=== PATIENT | male | born 1940 | race African-American/Black ===

== ENCOUNTER 2019-12-01 16:25 | Emergency (ER) | payer MEDICARE, MEDICAID ==
[~2019-12-01] VITALS: Ht 175.3 cm; Wt 68.0 kg
--- NOTE | 2019-12-01 16:35 | Emergency Room Report ---
History of Present Illness General Chief Complaint: Multiple Trauma/Fall Source: Patient Present Illness HPI Patient is a 79-year-old male who presents after unwitnessed fall at his facility. [facility] in [facility]. He had fallen and hit his head. He reports having pain to his head as well as to his low back into his left hip. Injury occurred approximately 1-2 hours prior to arrival. Patient is not currently taking any blood thinners. He has prior history of dementia. Followed by Dr. Emil Loza. COVID-19 risk:Contact w/high r: No COVID-19 risk:Travel to affect: No Has patient experienced hoover: No Allergies: Coded Allergies: No Known Allergies (Unverified , 12/01/19) Patient History Past Medical History: see triage record Reviewed Nursing Documentation: PMH: Agreed; PSxH: Agreed Nursing Documentation-PMH Hx Hypertension: Yes Review of Systems All Other Systems: negative except mentioned in HPI Physical Exam Vital Signs Date Time Temp Pulse Resp B/P (MAP) Pulse Ox O2 Delivery O2 Flow Rate FiO2 12/01/19 16:21 97.5 82 18 127/84 (98) 96 Room Air Sp02 EP Interpretation: reviewed, normal General Appearance: normal inspection, well appearing, no apparent distress, alert, GCS 15 Head: atraumatic ENT: normal ENT inspection, hearing grossly normal, normal voice Neck: normal inspection, full range of motion, supple, no bony tend Respiratory: normal inspection, lungs clear, normal breath sounds, no respiratory distress, no retraction, no wheezing Cardiovascular #1: regular rate, rhythm, no edema Gastrointestinal: normal inspection, normal bowel sounds, non tender, soft, no guarding, no hernia Genitourinary: no CVA tenderness Musculoskeletal: normal inspection, back normal, normal range of motion Neurologic: alert, motor strength/tone normal, 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, responsive, speech normal, normal inspection Psychiatric: normal inspection, judgement/insight normal, mood/affect normal Skin: laceration - 3cm stellate to forehead Procedures Laceration/Wound Repair Laceration/Wound Repair : Consent: Emergent Wound Location: face Wound's Depth, Shape: into muscle, stellate Wound Length (cm): 3 Wound Explored: clean Irrigated w/ Saline (ccs): 30 Anesthesia: Lidocaine w/ Epi Volume Anesthetic (ccs): 4 Wound Debrided: None Wound Repaired With: sutures Suture Size/Type: 5:0, other - gut Number of Sutures: 8 Deep Layer Suture Size/Type: 5:0, other - vicryl Patient Tolerated: Well Complications: None Medical Decision Making Diagnostic Impression: Primary Impression: Fall Additional Impressions: Facial laceration Contusion, hip ER Course Patient presented after a fall. Differential diagnosis include was not limited to head injury, fracture, lumbar fracture among others. Because of complexity of patient's case laboratory tests and imaging studies were ordered.CT of the head read by radiology showed no evidence of acute intracranial hemorrhage or fracture. CT of the lumbar spine showed no evidence of acute fracture. CT pelvis showed degenerative changes without evident fracture. Patient's laboratory testing was unremarkable. Laceration was irrigated and repaired. Patient tolerated this well.Patient was awake alert and oriented. Patient will discharge back to his facility after discussion with Dr. Emil Loza. Labs Test 12/01/19 16:30 White Blood Count 4.2 K/UL (4.8-10.8) Red Blood Count 4.29 M/UL (4.70-6.10) Hemoglobin 10.9 G/DL (14.2-18.0) Hematocrit 34.5 % (42.0-52.0) Mean Corpuscular Volume 80 FL (80-99) Mean Corpuscular Hemoglobin 25.5 PG (27.0-31.0) Mean Corpuscular Hemoglobin Concent 31.7 G/DL (32.0-36.0) Red Cell Distribution Width 13.6 % (11.6-14.8) Platelet Count 177 K/UL (150-450) Mean Platelet Volume 8.3 FL (6.5-10.1) Neutrophils (%) (Auto) 55.9 % (45.0-75.0) Lymphocytes (%) (Auto) 30.7 % (20.0-45.0) Monocytes (%) (Auto) 11.8 % (1.0-10.0) Eosinophils (%) (Auto) 0.7 % (0.0-3.0) Basophils (%) (Auto) 0.9 % (0.0-2.0) Urine Color Yellow Urine Appearance Clear Urine pH 6 (4.5-8.0) Urine Specific Reserve 1.020 (1.005-1.035) Urine Protein Negative (NEGATIVE) Urine Glucose (UA) Negative (NEGATIVE) Urine Ketones 1+ (NEGATIVE) Urine Blood Negative (NEGATIVE) Urine Nitrite Negative (NEGATIVE) Urine Bilirubin Negative (NEGATIVE) Urine Urobilinogen 4 MG/DL (0.0-1.0) Urine Leukocyte Esterase Negative (NEGATIVE) Sodium Level 148 MMOL/L (136-145) Potassium Level 4.3 MMOL/L (3.5-5.1) Chloride Level 110 MMOL/L (98-107) Carbon Dioxide Level 30 MMOL/L (21-32) Anion Gap 8 mmol/L (5-15) Blood Urea Nitrogen 20 mg/dL (7-18) Creatinine 1.0 MG/DL (0.55-1.30) Estimat Glomerular Filtration Rate > 60 mL/min (>60) Glucose Level 119 MG/DL (74-106) Calcium Level 9.7 MG/DL (8.5-10.1) Total Bilirubin 0.9 MG/DL (0.2-1.0) Aspartate Amino Transf (AST/SGOT) 20 U/L (15-37) Alanine Aminotransferase (ALT/SGPT) 20 U/L (12-78) Alkaline Phosphatase 83 U/L (46-116) Total Protein 7.0 G/DL (6.4-8.2) Albumin 3.8 G/DL (3.4-5.0) Globulin 3.2 g/dL Albumin/Globulin Ratio 1.2 (1.0-2.7) Last Vital Signs Date Time Temp Pulse Resp B/P (MAP) Pulse Ox O2 Delivery O2 Flow Rate FiO2 12/01/19 16:21 97.5 82 18 127/84 (98) 96 Room Air Status: improved Disposition: XFER SN[facility] Condition: Stable Daniel Calvert MD Dec 01, 2019 16:35
[2019-12-01] MEDS ORDERED: Lidocaine 1% 10mg/ml/Epi 0.005mg/ml 30ml vial INJ ONE (16:37)
[2019-12-01 16:41] VITALS: BP 135/45
[2019-12-01] MEDS ORDERED: Lidocaine 1% 10mg/ml/EPI 0.01mg/ml 30ml INJ ONE (16:45)
[2019-12-01 17:05] LABS: BASOPHILS % (AUTO) 0.9 % (0.0-2.0); EOSINOPHILS % (AUTO) 0.7 % (0.0-3.0); HEMATOCRIT 34.5 % (42.0-52.0); HEMOGLOBIN 10.9 G/DL (14.2-18.0); LYMPHOCYTES % (AUTO) 30.7 % (20.0-45.0); MEAN CORPUSCULAR VOLUME 80 FL (80-99); MONOCYTES % (AUTO) 11.8 % (1.0-10.0); NEUTROPHILS % (AUTO) 55.9 % (45.0-75.0); PLATELET COUNT 177 K/UL (150-450); RED BLOOD COUNT 4.29 M/UL (4.70-6.10); RED CELL DISTRIBUTION WIDTH 13.6 % (11.6-14.8); WHITE BLOOD COUNT 4.2 K/UL (4.8-10.8)
[2019-12-01 17:07] LABS: APPEARANCE,URINE CLEAR; BILIRUBIN, URINE NEGATIVE (NEGATIVE); GLUCOSE, URINE (UA) NEGATIVE (NEGATIVE); KETONES,URINE 1+ (NEGATIVE); LEUKOCYTE ESTERASE ,URINE NEGATIVE (NEGATIVE); NITRITE,URINE NEGATIVE (NEGATIVE); PH,URINE 6 (4.5-8.0); PROTEIN,URINE NEGATIVE (NEGATIVE); UROBILINOGEN,URINE 4 MG/DL (0.0-1.0)
[2019-12-01 17:11] LABS: COLOR,URINE YELLOW
[2019-12-01 17:14] LABS: ANION GAP 8 mmol/L (5-15); BLOOD UREA NITROGEN 20 mg/dL (7-18); CALCIUM 9.7 MG/DL (8.5-10.1); CARBON DIOXIDE 30 MMOL/L (21-32); CHLORIDE 110 MMOL/L (98-107); POTASSIUM 4.3 MMOL/L (3.5-5.1); SODIUM 148 MMOL/L (136-145)
[2019-12-01 17:19] LABS: ALANINE AMINOTRANSFERASE 20 U/L (12-78); ALBUMIN 3.8 G/DL (3.4-5.0); ALBUMIN/GLOBULIN RATIO 1.2 (1.0-2.7); ALKALINE PHOSPHATASE 83 U/L (46-116); ASPARTATE AMINO TRANSFERASE 20 U/L (15-37); BILIRUBIN,TOTAL 0.9 MG/DL (0.2-1.0)
--- NOTE | 2019-12-01 17:44 | Diagnostic Imaging Report ---
EXAM: CT Head Without Intravenous Contrast CLINICAL HISTORY: PAIN TECHNIQUE: Axial computed tomography images of the head/brain without intravenous contrast. CTDI is 53.4 mGy and DLP is 1024.9 mGy-cm. One or more of the following dose reduction techniques were used: automated exposure control, adjustment of the mA and/or kV according to patient size, use of iterative reconstruction technique. COMPARISON: None FINDINGS: Brain: No acute infarct or hemorrhage identified. No extra-axial fluid collection. No mass effect or midline shift. Scattered areas of hypoattenuation in the supratentorial white matter likely represent chronic small vessel ischemic changes. Ventricles and sulci: Prominence of the ventricles and sulci is likely secondary to cerebral volume loss. Bones: Normal. No bony lesion or fracture. Subcutaneous tissues: Normal. Sinuses: Normal. No air-fluid levels or mucosal thickening. Mastoid air cells: Normal. Orbits: Bilateral lens implants. Right scleral banding. Other: Atherosclerotic calcifications in the intracranial vasculature. IMPRESSION: 1. No acute intracranial abnormality. 2. Chronic small vessel ischemic changes and cerebral volume loss.
--- NOTE | 2019-12-01 17:49 | Diagnostic Imaging Report ---
EXAM: CT Lumbar Spine Without Intravenous Contrast CLINICAL HISTORY: PAIN TECHNIQUE: Axial computed tomography images of the lumbar spine without intravenous contrast. CTDI is 7.9 mGy and DLP is 336 mGy-cm. One or more of the following dose reduction techniques were used: automated exposure control, adjustment of the mA and/or kV according to patient size, use of iterative reconstruction technique. COMPARISON: None FINDINGS: Bones: Osteopenia. No acute fracture or bony lesion. Disc spaces: No subluxation. Degenerative changes of the spine. Mild spinal canal stenosis at T12-L1. Mild to moderate spinal canal stenosis at L2-3 and L3-4 and L4-5. Severe left and mild right neural foraminal stenoses at T12-L1 and L1-2. Moderate bilateral neural foraminal stenoses at L2-3 and L3-4. Severe bilateral neural foraminal stenoses at L4-5. Severe right and moderate to severe left neural foraminal stenoses at L5-S1. Soft tissues: Normal. Other: Atherosclerotic changes of the vasculature. Renal vascular calcifications versus punctate nonobstructing renal stones. Diverticulosis. IMPRESSION: No acute traumatic abnormality. Degenerative changes as described above.
--- NOTE | 2019-12-01 17:55 | Diagnostic Imaging Report ---
EXAM: CT Pelvis Without Intravenous Contrast CLINICAL HISTORY: PAIN TECHNIQUE: Axial computed tomography images of the pelvis without intravenous contrast. CTDI is 5.2 mGy and DLP is 191.7 mGy-cm. One or more of the following dose reduction techniques were used: automated exposure control, adjustment of the mA and/or kV according to patient size, use of iterative reconstruction technique. COMPARISON: None FINDINGS: Bowel: Diverticulosis without visualized diverticulitis. No obstruction. Appendix: Normal appendix. Intraperitoneal space: Unremarkable. No free air. No significant fluid collection. Bladder: Mild prominence of the bladder wall is nonspecific. Please correlate with urinalysis if concerned for cystitis. No stones. Reproductive: Prostatomegaly. Bones/joints: No acute fracture. No dislocation. Soft tissues: Mild body wall edema. Vasculature: Atherosclerotic changes of the vasculature. No lower abdominal aortic aneurysm. Lymph nodes: Unremarkable. No enlarged lymph nodes. IMPRESSION: No acute fracture or dislocation. Mild prominence of the bladder wall is nonspecific. Please correlate with urinalysis if concerned for cystitis.
[2019-12-01] MEDS ORDERED: Bacitracin Oint UD TOPIC ONE ×2 (18:15→18:16)
[2019-12-01 18:16] VITALS: BP 125/74
[2019-12-01 18:55] VITALS: BP 130/43
[2019-12-01 18:56] VITALS: BP 130/43
== END 2019-12-01 19:02 | disposition home or self-care (01) ==
LOC: EDBD 16:25 → EMR 16:50
DX: S01.81XA Laceration without foreign body of other part of head, initial encounter (principal); S70.02XA Contusion of left hip, initial encounter; I10 Essential (primary) hypertension; W01.10XA Fall on same level from slipping, tripping and stumbling with subsequent striking against unspecified object, initial encounter; Y93.9 Activity, unspecified; Y92.129 Unspecified place in nursing home as the place of occurrence of the external cause
CPT/HCPCS: 36415; 70450; 72131; 72192; 80053; 81003; 85025; 93005; 99284